=== PATIENT | male | born 1950 | race Caucasian/White ===

== ENCOUNTER 2019-03-04 16:53 | Emergency (ER) | payer MEDICARE ==
[~2019-03-04] VITALS: Ht 180.3 cm; Wt 89.5 kg
[2019-03-04 17:32] LABS: BASOPHILS % (AUTO) 0.5 % (0-1); EOSINOPHILS # (AUTO) 0.1 X10'3 (0-0.9); EOSINOPHILS % (AUTO) 1.7 % (0-6); HEMATOCRIT 45.4 % (42.0-52.0); HEMOGLOBIN 15.4 g/dl (14.0-17.9); LYMPHOCYTES # (AUTO) 1.2 X10'3 (1.1-4.8); LYMPHOCYTES % (AUTO) 16.4 % (21-51); MEAN CORPUSCULAR HEMOGLOBIN 29.1 PG (27.0-31.0); MEAN CORPUSCULAR HGB CONC 33.8 g/dL (33.0-36.5); MEAN PLATELET VOLUME 8.6 FL (7.4-10.4); MONOCYTES # (AUTO) 0.6 X10'3 (0-0.9); MONOCYTES % (AUTO) 8.7 % (2-12); NEUTROPHILS # (AUTO) 5.1 X10'3 (1.8-7.7); NEUTROPHILS % (AUTO) 72.7 % (42-75); PLATELET COUNT 225 X10'3 (140-440); RED BLOOD COUNT 5.28 X10'6 (4.70-6.10); RED CELL DISTRIBUTION WIDTH 13.8 % (11.5-14.5); WHITE BLOOD COUNT 7.1 X10'3 (4.5-11.0)
[2019-03-04 17:37] LABS: ALANINE AMINOTRANSFERASE 43 U/L (12-78); ALBUMIN 3.9 G/DL (3.4-5.0); ALBUMIN/GLOBULIN RATIO 1.1 (1.1-1.5); ALKALINE PHOSPHATASE 88 IU/L (46-116); ANION GAP 7 (8-16); ASPARTATE AMINO TRANSFERASE 27 U/L (10-37); BILIRUBIN,TOTAL 0.5 MG/DL (0.1-1.0); BLOOD UREA NITROGEN 10 MG/DL (7-18); BUN/CREATININE RATIO 10.8 (5.4-32.0); CALCIUM 9.2 MG/DL (8.5-10.1); CHLORIDE 104 MMOL/L (99-107); CREATININE 0.93 MG/DL (0.60-1.10); GLUCOSE 121 MG/DL (70-104); POTASSIUM 3.8 MMOL/L (3.5-5.1); SODIUM 138 MMOL/L (135-145); TOTAL CARBON DIOXIDE 26.7 MMOL/L (24-32); TOTAL PROTEIN 7.6 G/DL (6.4-8.2); eGFR 81 ML/MIN
[2019-03-04 17:38] LABS: PARTIAL THROMBOPLASTIN TIME 26 SECONDS (22-32)
[2019-03-04 18:52] VITALS: BP 140/76
== END 2019-03-04 18:54 | disposition home or self-care (01) ==
LOC: ER 16:54
DX: R07.89 Other chest pain (principal); K21.9 Gastro-esophageal reflux disease without esophagitis
CPT/HCPCS: 36415; 71045; 80053; 84484; 85025; 85610; 85730; 93005; 99284

== ENCOUNTER 2022-02-13 09:37 | Outpatient (CLI) | payer MEDICARE | END 2022-02-13 23:59 | disposition home or self-care (01) | LOC: VAS 09:37 | PROVIDERS: ATTEND Family Medicine | DX: I82.90 Acute embolism and thrombosis of unspecified vein (principal) | CPT/HCPCS: 93971 ==

== ENCOUNTER 2022-03-05 11:09 | Outpatient (CLI) | payer MEDICARE | END 2022-03-05 23:59 | disposition home or self-care (01) | LOC: LAB 11:09 | PROVIDERS: ATTEND Internal Medicine Gastroenterology | DX: K29.80 Duodenitis without bleeding (principal) | CPT/HCPCS: 36415; 83520 ==

== ENCOUNTER 2022-04-08 15:14 | Emergency (ER) | payer MEDICARE ==
[~2022-04-08] VITALS: Ht 180.3 cm; Wt 93.2 kg
--- NOTE | 2022-04-08 20:10 | NUR ---
VASCULAR PAGED AT 2010
[2022-04-08] MEDS ORDERED: acetaminophen 325mg tablet PO ONE (20:25)
[2022-04-08 21:34] VITALS: BP 142/88
== END 2022-04-08 21:35 | disposition home or self-care (01) ==
LOC: ER 15:14
DX: M79.18 Myalgia, other site (principal); M54.2 Cervicalgia; R50.9 Fever, unspecified; R53.1 Weakness; K21.9 Gastro-esophageal reflux disease without esophagitis; M79.662 Pain in left lower leg; M79.661 Pain in right lower leg
CPT/HCPCS: 93971; 99284